=== PATIENT | female | born 1950 | race Caucasian/White ===

== ENCOUNTER → 2021-07-06 00:42 | Outpatient (CLI) | payer MEDICARE, BC, SELFPAY ==
[2021-07-06 18:09] LABS: SARS-CoV-2 RNA PCR Negative
== END ==
PROVIDERS: PCP Internal Medicine; Visit Provider Internal Medicine
DX: Z20.822 Contact with and (suspected) exposure to COVID-19 (principal)
CPT/HCPCS: C9803; U0003; U0005

== ENCOUNTER 2021-12-19 09:38 | Outpatient (CLI) | payer MEDICARE, BC, SELFPAY ==
--- NOTE | ~2021-12-19 | US_ITS ---
EXAMINATION: US venous doppler LE RT EXAM DATE: 12/19/2021 10:08 INDICATION: Swelling of right lower leg. TECHNIQUE: Multiple grayscale, color flow and Doppler images of the right lower extremity deep venous system were obtained and reviewed. There is no prior study for comparison. FINDINGS: The right common femoral, femoral and profunda veins demonstrate normal color flow, respira tory variation, augmentation and compressibility. Compressibility, color flow confirmed within the r ight popliteal, posterior tibial, peroneal, and greater saphenous veins. IMPRESSION: 1. No right lower extremity deep venous thrombosis. Reviewed, dictated and finalized at location B. X RAY NURSE
== END 2021-12-19 09:39 | disposition home or self-care (01) ==
PROVIDERS: PCP Internal Medicine; Visit Provider Physician Assistant Surgical
DX: R22.41 Localized swelling, mass and lump, right lower limb (principal)
CPT/HCPCS: 93971

== ENCOUNTER 2022-11-03 09:15 | Outpatient (CLI) | payer MEDICARE, BC, SELFPAY ==
--- NOTE | 2022-11-03 | ECG_ITS ---
Measurements Intervals [place] Rate: 69 P: 51 MI: 163 QRS: 54 QRSD: 143 T: 13 QT: 423 QTc: 456 Interpretive Statements SINUS RHYTHM RIGHT BUNDLE BRANCH BLOCK ABNORMAL ECG NO PREVIOUS ECG AVAILABLE FOR COMPARISON Electronically Signed On 11-03-2022 10:13:49 COP BREAKER by Danny Moore D.O.
[2022-11-03 10:09] LABS: Anion Gap 7 mmol/L (8-16); Blood Urea Nitrogen 12 mg/dL (7-17); Carbon Dioxide 29 mmol/L (22-30); Chloride 106 mmol/L (98-107); Estimated Glomerular Filt Rate > 60; Glucose 96 mg/dL (65-110); Potassium 4.1 mmol/L (3.4-5.0); Sodium 142 mmol/L (137-145)
== END 2022-11-03 09:16 | disposition home or self-care (01) ==
LOC: ANHIMG 09:24 → ANHLAB 09:32
PROVIDERS: PCP Internal Medicine; Visit Provider Orthopaedic Surgery
DX: Z01.818 Encounter for other preprocedural examination (principal); I45.10 Unspecified right bundle-branch block
CPT/HCPCS: 36415; 80048; 93005

== ENCOUNTER 2023-04-03 08:34 | Outpatient (CLI) | payer MEDICARE, BC, SELFPAY ==
--- NOTE | 2023-04-03 08:49 | ECHO_ITS ---
Patient Info Name: Atiya Larose Age: 72 years : 1950 Gender: Female Ht: 65 in Wt: 195 lbs BSA: 2.05 m2 HR: 65 bpm BP: 129 / 83 mmHg Technical Quality: Good Exam Date: 04/03/2023 9:00 AM Exam Location: [facility] Patient Status: Outpatient Admit Date: 04/03/2023 Staff Ordering Physician: Melquiades Mckeon MD Periodicals Clerk: Albertina Caldwell RDCS Attending Provider: Melquiades Mckeon MD Referring Physician: Mike VALIENTE; Exam Type: CA echo doppler color flow Study Info Indications I10 - Essential (primary) hypertension Complete two-dimensional, color flow and Doppler transthoracic echocardiogram is performed. Summary 1. Complete two-dimensional, color flow and Doppler transthoracic echocardiogram is performed. 2. Left ventricular chamber dimension is normal. 3. Ventricular septum is sigmoid shaped. No LVOT obstruction. 4. Left ventricular systolic function is normal, estimated at 60-65%. 5. There is mild concentric increased left ventricular wall thickness. 6. The left ventricular diastolic function is grade II diastolic dysfunction. 7. E/e' 14 is mildly elevated. 8. Global longitudinal strain is normal at -18.4%. 9. Left atrial chamber dimension is moderately enlarged. 10. There is trace mitral valve regurgitation. 11. No pulmonary hypertension, estimated pulmonary arterial systolic pressure is 20 mmHg. Left Ventricle Ventricular septum is sigmoid shaped. No LVOT obstruction. Global longitudinal strain is normal at -18.4%. E/e' 14 is mildly elevated. Left ventricular chamber dimension is normal. Left ventricular systolic function is normal, estimated at 60-65%. There is mild concentric increased left ventricular wall thickness. The left ventricular diastolic function is grade II diastolic dysfunction. Right Ventricle Right ventricular chamber dimension is normal. Right ventricular systolic function is normal. Left Atria Left atrial chamber dimension is moderately enlarged. Right Atria Right atrial chamber dimension is normal. Aortic Valve The aortic valve is trileaflet. There is no aortic valve stenosis. There is no aortic valve regurgitation. Pulmonic Valve There is no pulmonic regurgitation. Mitral Valve There is no mitral valve stenosis. There is trace mitral valve regurgitation. Tricuspid Valve There is no tricuspid valve regurgitation. No pulmonary hypertension, estimated pulmonary arterial systolic pressure is 20 mmHg. Pericardium/Pleural There is no pericardial effusion. Inferior Vena Cava Normal inferior vena cava with >50% collapse upon inspiration consistent with normal right atrial pressure, 5 mmHg. Aorta The aortic root size at the sinus of Valsalva is normal. Left Ventricular Outflow Tract Name Value Normal LVOT 2D LVOT Diameter 2.0 cm LVOT Doppler LVOT Peak Gradient 6 mmHg LVOT Mean Gradient 3 mmHg LVOT VTI 29 cm LVOT VTI/AV VTI Ratio 0.9 LVOT Stroke Volume 89 ml LVOT CO 5.4 l/min LVOT CI 2.6 l/min/m2 Pulmonic Valve ---------
== END 2023-04-03 08:35 | disposition home or self-care (01) ==
LOC: ANHCARD 08:35
PROVIDERS: PCP Internal Medicine; Visit Provider Internal Medicine
DX: I45.10 Unspecified right bundle-branch block (principal); I10 Essential (primary) hypertension
CPT/HCPCS: 93306

== ENCOUNTER 2023-04-29 08:05 | Outpatient (CLI) | payer MEDICARE, BC, SELFPAY ==
--- NOTE | 2023-04-29 08:35 | ECG_ITS ---
Measurements Intervals [place] Rate: 61 P: 38 SC: 172 QRS: 22 QRSD: 146 T: 0 QT: 450 QTc: 455 Interpretive Statements SINUS RHYTHM RIGHT BUNDLE BRANCH BLOCK BASELINE ARTIFACT- I, II, III ABNORMAL ECG COMPARED TO ECG 11/03/2022 09:56:00 NO SIGNIFICANT CHANGES Electronically Signed On 04-29-2023 8:54:40 CDT by Danny Moore D.O.
[2023-04-29 08:37] LABS: Anion Gap 2 mmol/L (8-16); Blood Urea Nitrogen 19 mg/dL (7-17); Calcium 9.3 mg/dL (8.4-10.2); Carbon Dioxide 29 mmol/L (22-30); Chloride 106 mmol/L (98-107); Estimated Glomerular Filt Rate > 60; Glucose 96 mg/dL (65-110); Sodium 137 mmol/L (137-145)
== END 2023-04-29 08:06 | disposition home or self-care (01) ==
LOC: ANHLAB 08:08
PROVIDERS: PCP Internal Medicine; Visit Provider Orthopaedic Surgery
DX: Z01.818 Encounter for other preprocedural examination (principal); I45.10 Unspecified right bundle-branch block
CPT/HCPCS: 36415; 80048; 93005

== ENCOUNTER 2023-04-29 08:54 | Outpatient (CLI) | payer MEDICARE, BC, SELFPAY ==
--- NOTE | ~2023-04-29 | DEXA_ITS ---
Bone Density Report Name: AMY AMIN Age: 72 Sex: Female Ethnicity: White Date of : 1950 Indication: postmenopausal; screening for osteoporosis; Referring Provider: ELISA AGOSTO Study: Bone densitometry was performed. Exam Date: April 29, 2023 Accession number: [id number] Bone Density: Region BMD T-score Z-score Classification AP Spine(L1-L4) 0.943 -0.9 1.3 Normal Femoral Neck (Left) 0.650 -1.8 0.1 Osteopenia Total Hip (Left) 0.947 0.0 1.6 Normal Femoral Neck (Right) 0.766 -0.7 1.2 Normal Total Hip (Right) 0.885 -0.5 1.1 Normal Total Hip Mean 0.916 -0.3 1.4 Normal World Health Organization criteria for BMD impression classify patients as: Normal (T-score at or above -1.0), Osteopenia (T-score between -1.0 and -2.5), or Osteoporosis (T-score at or below -2.5). 10-year Fracture Risk(1): Major Osteoporotic Fracture 10% Hip Fracture 1.8% Reported Risk Factors: [place] (), Neck BMD=0.650, BMI=32.6 (1) FRAX(R) Version 3.08. Fracture probability calculated for an untreated patient. Fracture probability may be lower if the patient has received treatment. Previous Exams: Region Exam Age BMD T-score BMD Change BMD Change Date g/cm2 vs Baseline vs Previous AP Spine (L1-L4) 04/29/2023 72 0.943 -0.9 -0.012 (-1.2%) -0.012 (-1.2%) 05/25/2017 66 0.955 -0.8 Total Hip(Left) 04/29/2023 72 0.947 0.0 -0.034 (-3.5%) -0.034 (-3.5%) 05/25/2017 66 0.982 0.3 Total Hip(Right) 04/29/2023 72 0.885 -0.5 -0.043 (-4.7%) -0.043 (-4.7%) 05/25/2017 66 0.928 -0.1 *Denotes significance at 95% confidence level, LSC for AP Spine = 0.022 g/cm2, LSC for Total Hip = 0.027 g/cm2 Clinical Information Provided by Patient: Has used the following medications: Vitamin D Patient maximum height was 65 Menopause Age: 58 Does not regularly consume dairy products Onset of menses at age 12 Number of children 2 Impression: The patient has low bone mass, based on the Left Femoral Neck T-score. The patient has an estimated ten-year risk of hip fracture of 1.8% and an estimated ten-year risk of major fracture of 10%, based on the WHO FRAX algorithm. The BMD for the Total Hip(Left) decreased, changing by -3.5% since the last DXA exam. The BMD for the Total Hip(Right) decreased, changing by -4.7% since the last DXA exam. Discussion: BONE DENSITY IS LOW AT ONE OR MORE SKELETAL SITES. This patient's lowest T-score is low at
== END 2023-04-29 08:55 | disposition home or self-care (01) ==
LOC: ANHIMG 08:55
PROVIDERS: PCP Internal Medicine; Visit Provider Internal Medicine
DX: Z78.0 Asymptomatic menopausal state (principal); M85.852 Other specified disorders of bone density and structure, left thigh
CPT/HCPCS: 36415; 77080; 80048; 93005

== ENCOUNTER 2023-12-17 14:05 | Outpatient (CLI) | payer MEDICARE, BC, SELFPAY ==
--- NOTE | ~2023-12-17 | XR_ITS ---
Clinical Indication: Cough, shortness of breath PA and lateral views of the chest: Comparison: 10/21/2013 Findings: The lungs are clear, without evidence of focal consolidation or pleural effusion. Cardiome diastinal silhouette is within normal limits. Bones and soft tissues are unremarkable. Impression: Normal chest. Reviewed, dictated and finalized at location . C TYPOGRAPHER Impression: Normal chest.
[2023-12-17 14:51] LABS: Basophils Absolute Auto 0.1 K/mm3 (0.0-0.1); Basophils Percent Auto 0.8 % (0.2-1.2); Eosinophils Absolute Auto 0.2 K/mm3 (0-0.3); Eosinophils Percent Auto 2.7 % (0-4.4); Hematocrit 38.9 % (37.0-47.0); Hemoglobin 12.7 g/dL (12.0-15.0); Immature Granulocyte Absolute 0.02 K/mm3 (0.00-0.031); Immature Granulocyte Percent A 0.3 % (0-0.5); Lymphocytes Absolute Auto 1.94 K/mm3 (0.9-3.2); Mean Corpuscular HGB Conc 32.6 g/dl (32-36); Mean Corpuscular Hemoglobin 27.6 pg (26-34); Mean Corpuscular Volume 84.6 fl (80-100); Mean Platelet Volume 9.8 fl (7.4-10.4); Monocytes Absolute Auto 0.4 K/mm3 (0.1-0.6); Monocytes Percent Auto 6.9 % (2.6-8.5); Neutrophils Absolute Auto 3.6 K/mm3 (1.3-6.7); Neutrophils Percent Auto 58.3 % (45.5-73.1); Platelet Count Result 269 k/mm3 (150-375); Red Cell Distribution Width 13.7 % (11.5-14.5); White Blood Count 6.3 K/mm3 (4.5-10.0)
== END 2023-12-17 14:06 | disposition home or self-care (01) ==
LOC: ANHLAB 14:08
PROVIDERS: PCP Internal Medicine; Visit Provider Internal Medicine
DX: R05.9 Cough, unspecified (principal); U09.9 Post COVID-19 condition, unspecified
CPT/HCPCS: 36415; 71046; 85025

== ENCOUNTER 2024-03-23 12:39 | Outpatient (CLI) | payer MEDICARE, BC, SELFPAY ==
--- NOTE | ~2024-03-23 | CT_ITS ---
EXAMINATION: CT abdomen pelvis wo/w con DATE: 03/23/2024 13:22 INDICATION: Hematuria, unspecified. TECHNIQUE: Computed tomography (CT) of the abdomen and pelvis was performed without and with intraven ous contrast using a total of 130 mL Omnipaque-350 intravenous contrast with a double-bolus technique for simultaneous opacification of the renal parenchyma and renal collecting system. Automated exposu re control and iterative reconstruction technique were employed. The dose-length product was 2012.01 mGy-cm. COMPARISON: None FINDINGS: The visualized portions of the lung bases demonstrate mild atelectasis. There is mild scarring in par aspinal right lower lobe. No pleural effusion. The heart size is normal. No pericardial effusion. The re are cysts in the liver measuring up to 7 mm. The gallbladder, pancreas, and adrenal glands are nor mal. Calcifications in the spleen are consistent with old granulomatous disease. There is no urolithi asis. Right kidney is normal. There is a 10 mm mass of fat in left kidney, consistent with an angiomy olipoma. The adrenal glands are normal. The endometrial complex is thickened to 11 mm. There are no d ilated loops of bowel. The appendix is normal. Aortic atherosclerosis is noted. There are no patholog ically enlarged lymph nodes. There is no free intraperitoneal fluid. There is severe thoracic and lum bar spondylosis. IMPRESSION: 1. Thickened endometrial complex. The differential diagnosis includes endometrial hyperplasia, polyp, and carcinoma. Biopsy is recommended. 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 Reviewed, dictated and finalized at location A. IMPRESSION: 1. Thickened endometrial complex. The differential diagnosis includes endometri al hyperplasia, polyp, and carcinoma. Biopsy is recommended. 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
[2024-03-23 13:01] LABS: Estimated Glomerular Filt Rate > 60
== END 2024-03-23 12:40 ==
LOC: MICIMG 12:40
PROVIDERS: PCP Internal Medicine; Visit Provider Internal Medicine
DX: R31.9 Hematuria, unspecified (principal); D17.71 Benign lipomatous neoplasm of kidney; R93.89 Abnormal findings on diagnostic imaging of other specified body structures
CPT/HCPCS: 74178; Q9967

== ENCOUNTER 2024-04-29 00:07 | Day surgery (SDC) | payer MEDICARE, BC, SELFPAY ==
[2024-04-26 11:55] VITALS: BMI 32.1
--- NOTE | 2024-04-26 12:01 | PC.NURSE ---
Report to the Outpatient Waiting Room, entrance under the green pavilion located off [facility], at time _0630_ on date _[id number]_. Planned Procedure Time: _0830_. Time changes happen often and if your time is changed the preop area will call you the afternoon before. - You and your visitor will be asked to self-screen and do not enter if you have any COVID symptoms. - A mask is optional within the hospital at this time. Patients may have clear liquids (water, carbonated beverages, clear teas, apple juice) until 3 hours prior to surgery with a maximum of 20 ounces. - No food from midnight until time of surgery Take the following medications with a SIP of water the morning of surgery: ____Levothyroxine and inhaler DO NOT STOP ANY OF YOUR OTHER PRESCRIPTION MEDICATIONS PRIOR TO SURGERY ?EXCEPT THE FOLLOWING Medications to discontinue per physician Vitamins and fish oil Date to take last dose___Stop today. Please no make-up, nail togolese, hairspray, perfume, deodorant, or body powder the day of surgery. No jewelry (including any body piercings) or valuables the day of surgery, leave them at home. Please take a shower or bath the night before, or the morning of, surgery with an antibacterial soap. Wear comfortable, loose fitting clothing. - Jewelry must be removed prior to entering the operating room. Rings and piercings that are not removed may be cut off. - The hospital will not accept responsibility for valuables. - Please leave all valuables, including medications, at home the day of surgery. If you are going home after surgery, a licensed ice cream truck driver must drive you home. - NO public transportation without another adult if you receive anesthesia. - We recommend that an adult stay with you for 24 hours following discharge. - We also recommend that you do not drive, make important decision, drink alcoholic beverages, or take any drugs that were not prescribed by your health care provider for at least 24 hours after your discharge time. Follow any additional instructions given to you from your surgeon. If you or anyone in your household have experienced Covid symptoms in the past week, please notify your surgeon or the nurse liaison at the phone number below for possible testing. Telephone instructions given to __Kathy___and asked if any additional questions and then verbalized understanding. Patient advised to call surgeon office or pre surgery nurse liaison [phone] if any additional questions.
--- NOTE | 2024-04-26 12:47 | PM.IMHP ---
H&P: HPI History of Present Illness Date/Time: 04/26/24 12:47 Chief Complaint: Postmenopausal bleeding Narrative: 73-year-old female who was postmenopausal status post 2 vaginal deliveries many years ago admitted for hysteroscopy/dilatation curettage. She has seen some blood in her urine so a urologist but a negative workup. Unfortunately CT showed thickened endometrium. This was the 1st time she has blood. She has never taken hormone. Risks and benefits reviewed including but not exclusive of , aspiration pneumonia bleeding, transfusion, perforation injury to bowel, bladder, ureters, or other internal organs with need for open laparotomy. She received the ACOG handouts entitled hysteroscopy as well as dilatation curettage. She had all questions answered. She asked to proceed PMF Past Medical History Medical History Benign essential hypertension BMI 32.0-32.9,adult BMI 33.0-33.9,adult Breast cancer screening Bronchitis Colon cancer screening DJD (degenerative joint disease) of knee Encounter for Medicare annual wellness exam Encounter for routine adult health examination without abnormal findings Environmental allergies Family history of other cardiovascular diseases Follow up GERD (gastroesophageal reflux disease) Grade II diastolic dysfunction Hives Hyperlipidemia Hypothyroidism (acquired) Measles screening On assisted drug therapy Osteopenia Personal history of COVID-19 Prediabetes RBBB (right bundle branch block) Screening for osteoporosis URI (upper respiratory infection) Urticaria Surgical History Surgical History History of arthroscopy of left knee Dr Torres 10/2022 & 05/2023 History of bunionectomy History of tonsillectomy and adenoidectomy Hx of breast reduction, elective Hx of tubal ligation Family History Family History Sibling Hypertension Father Cerebrovascular accident Acute myocardial infarction Other Family history of malignant neoplasm of breast Family history of malignant neoplasm of male breast Social History Social History Smoking status: Never smoker Alcohol intake: current Drinks per week: 1 Alcohol use details: socially Substance use type: does not use Do You Feel Safe in your Home?: Yes Lack of Transportation: No Lack of Food: Never True Current Housing: I Have Housing Concerned About Future Housing: No Difficulty Paying Gas/Electric Bills: No Difficulty Paying for Meds: No Currently Unemployed: No Education: High School Diploma/GED Difficulty w/ Childcare or Family Care: No Living arrangements: with family Occupation/Education: retired Gender identity (if verbalized by the patient): Female Spiritual care concerns: No Meds Home Medications and Allergies Home Medications Medication Instructions Recorded Confirmed Type omega-3 fatty acids 1,000 mg 1,000 mg PO BID 03/22/20 04/26/24 History capsule (Fish Oil Concentrate) cetirizine 10 mg capsule (Zyrtec) 10 mg PO DAILY PRN Allergy Symptoms 09/07/23 04/26/24 History alendronate 70 mg tablet See Rx Instructions .Route 10/20/23 04/26/24 Rx .COMPLEX #12 tabs vit 1 tablet PO DAILY 11/11/23 04/26/24 History B-tuzejvm-appkdahje-rutin-yhzo043 500 mg-50 mg-25 mg-40 mg tablet (Bioflex) albuterol sulfate 90 mcg/actuation 2 inh inhalation Q4-6H PRN 12/29/23 04/26/24 Rx aerosol inhaler shortness of breath or wheezing #8.5 grams levothyroxine 88 mcg tablet See Rx Instructions .Route 02/09/24 04/26/24 Rx .COMPLEX #90 tabs rosuvastatin 10 mg tablet See Rx Instructions .Route 03/09/24 04/26/24 Rx .COMPLEX #90 tabs candesartan 16 See Rx Instructions .Route 04/10/24 04/26/24 Rx mg-hydrochlorothiazide 12.5 mg .COMPLEX #90 tabs
--- NOTE | 2024-04-28 15:03 | WPDANESEPPF ---
Anes - Initial Pre Proc Eval Procedure: Operation Date: 04/29/24 08:30 Proposed Procedures p Hysteroscopy, Dilation and Curettage - Alvino Hernandez MD Date/Time: 04/28/24 15:03 Surgeon: Alvino Hernandez MD Pre Op Diagnosis: post menopausal bleeding Patient Data Age: 73 Gender: F Height: 1.65 m Weight: 87.7 kg Allergies Allergy/AdvReac Type Severity Reaction Status Date / Time No Known Allergies Allergy Verified 04/26/24 11:51 Home Medications Medication Instructions Recorded Confirmed Type omega-3 fatty acids 1,000 mg 1,000 mg PO BID 03/22/20 04/26/24 History capsule (Fish Oil Concentrate) cetirizine 10 mg capsule (Zyrtec) 10 mg PO DAILY PRN Allergy Symptoms 09/07/23 04/26/24 History alendronate 70 mg tablet See Rx Instructions .Route 10/20/23 04/26/24 Rx .COMPLEX #12 tabs vit 1 tablet PO DAILY 11/11/23 04/26/24 History M-kdtskpk-luozaudji-rutin-[id number] 500 mg-50 mg-25 mg-40 mg tablet (Bioflex) albuterol sulfate 90 mcg/actuation 2 inh inhalation Q4-6H PRN 12/29/23 04/26/24 Rx aerosol inhaler shortness of breath or wheezing #8.5 grams levothyroxine 88 mcg tablet See Rx Instructions .Route 02/09/24 04/26/24 Rx .COMPLEX #90 tabs rosuvastatin 10 mg tablet See Rx Instructions .Route 03/09/24 04/26/24 Rx .COMPLEX #90 tabs candesartan 16 See Rx Instructions .Route 04/10/24 04/26/24 Rx mg-hydrochlorothiazide 12.5 mg .COMPLEX #90 tabs tablet fluticasone furoate 100 1 ea inhalation DAILY 04/26/24 04/26/24 History mcg-vilanterol 25 mcg/dose inhalation powder hydrocodone 5 mg-acetaminophen 325 1 tablet PO Q4H PRN pain #14 tabs 04/29/24 Rx mg tablet Patient hx anesthesia problems: none Family hx anesthesia problems: none Results Review: All pre-operative results and documents have been reviewed as part of the pre-operative evaluation. [facility] Past Medical History Medical History Benign essential hypertension BMI 32.0-32.9,adult BMI 33.0-33.9,adult Breast cancer screening Bronchitis Colon cancer screening DJD (degenerative joint disease) of knee Encounter for Medicare annual wellness exam Encounter for routine adult health examination without abnormal findings Environmental allergies Family history of other cardiovascular diseases Follow up GERD (gastroesophageal reflux disease) Grade II diastolic dysfunction Hives Hyperlipidemia Hypothyroidism (acquired) Measles screening On care home drug therapy Osteopenia Personal history of COVID-19 Prediabetes RBBB (right bundle branch block) Screening for osteoporosis URI (upper respiratory infection) Urticaria Surgical History Surgical History History of arthroscopy of left knee Dr Torres 10/2022 & 05/2023 History of bunionectomy History of tonsillectomy and adenoidectomy Hx of breast reduction, elective Hx of tubal ligation Family History Family History Sibling Hypertension Father Cerebrovascular accident Acute myocardial infarction Other Family history of malignant neoplasm of breast Family history of malignant neoplasm of male breast Social History Social History Smoking status: Never smoker Alcohol intake: current Drinks per week: 1 Alcohol use details: socially Substance use type: does not use Do You Feel Safe in your Home?: Yes Lack of Transportation: No Lack of Food: Never True Current Housing: I Have Housing Concerned About Future Housing: No Difficulty Paying Gas/Electric Bills: No Difficulty Paying for Meds: No Currently Unemployed: No Education: High School Diploma/GED Difficulty w/ Childcare or Family Care: No Living arrangements: with family Occupation/Education: retired Gender identity (if verbaliz
--- NOTE | 2024-04-29 06:11 | WPDHPUPDATE1 ---
History and Physical Update Update Date/Time: 04/29/24 06:11 History and Physical has been reviewed, including an updated exam of the patient. There are NO changes in the patient's condition. Risks, benefits, and alternatives have been discussed and questions answered. Patient agrees to proceed with procedure.
[2024-04-29 07:11] VITALS: BP 137/59; PULSE 66; TEMP 36.7; O2SAT 95
[2024-04-29] MEDS: ACETAMINOPHEN 500 MG TABLET 1000 MG PO (07:16)
[2024-04-29] MEDS: LACTATED RINGERS 1,000 ML 30 ML IV CONT (07:16)
[2024-04-29] MEDS: LIDOCAINE HCL 1% LOCAL INJ 10 ML VIAL INFILTRATE (08:28)
--- NOTE | 2024-04-29 08:47 | W.PM.PROC2 ---
Procedure Note - Detailed Date of Procedure 04/29/24 Pre-op Diagnosis post menopausal bleeding Post-op Diagnosis Other (Postmenopausal bleeding with benign-appearing endometrial polyp) Procedure Performed hysteroscopy/ dilatation/ polypectomy Surgeon Alvino Hernandez MD Anesthesia MAC and Local Indications 73-year-old the postmenopausal bleeding Findings benign appearing endometrial polyp. Otherwise atrophic appearing endometrium Description of Procedure the patient was prepped draped sterile fashion placed in dorsal lithotomy position. Under excellent IV sedation weighted speculum placed in posterior fornix. Anterior lip of the cervix grasped with single-tooth tenaculum. Uterus sounded to 8cm after placing 2.5cc 1% xylocaine anesthesia 8, 10, 2, 4:00 a.m. of the cervix serial dilatation undertaken and 5mm visualizing hysteroscope inserted. A moderate-sized polyp was seen but a very appearance using the reticulating instrument this was its entirety. Uterus was then scraped over entire 360 ? until a good grating sound was the instruments withdrawn the patient was awakened. Went to recovery in satisfactory condition blood loss was estimated at5cc and all sponge, needle instrument counts were correct Estimated Blood Loss 5 Drains No Packing No Pathology Yes Complications No immediate complications Condition Stable Disposition PACU
[2024-04-29 08:49] VITALS: BP 119/50; PULSE 62; RESP 14; O2SAT 96
[2024-04-29 09:15] VITALS: BP 126/62; PULSE 65; RESP 20
[2024-04-29 09:40] VITALS: BP 139/61; PULSE 54; RESP 20
== END 2024-04-29 09:46 | disposition home or self-care (01) ==
PROVIDERS: PCP Internal Medicine; Visit Provider Obstetrics & Gynecology
PROC: 0U5B8ZZ Destruction of Endometrium, Via Natural or Artificial Opening Endoscopic (ICD-10-PCS; CPT 58563; principal; 2024-04-29 08:30)
DX: N84.0 Polyp of corpus uteri (principal); I10 Essential (primary) hypertension; K21.9 Gastro-esophageal reflux disease without esophagitis; E78.5 Hyperlipidemia, unspecified; E03.9 Hypothyroidism, unspecified; R73.03 Prediabetes; E66.9 Obesity, unspecified; Z68.32 Body mass index [BMI] 32.0-32.9, adult; Z79.83 Long term (current) use of bisphosphonates; Z79.51 Long term (current) use of inhaled steroids; Z79.891 Long term (current) use of opiate analgesic; Z98.890 Other specified postprocedural states; Z98.51 Tubal ligation status; Z86.79 Personal history of other diseases of the circulatory system; Z80.3 Family history of malignant neoplasm of breast; Z82.49 Family history of ischemic heart disease and other diseases of the circulatory system
CPT/HCPCS: 58558; 88305; A9270; J2405; J2704; J3010; J7120

== ENCOUNTER 2024-05-14 08:45 | Outpatient (CLI) | payer MEDICARE, BC, SELFPAY ==
--- NOTE | ~2024-05-14 | DEXA_ITS ---
Bone Density Report Name: AMY AMIN Age: 73 Sex: Female Ethnicity: White Date of : 1950 Indication: postmenopausal; screening for osteoporosis; Referring Provider: ELISA AGOSTO Study: Bone densitometry was performed. Exam Date: May 14, 2024 Accession number: [id number] Bone Density: Region BMD T-score Z-score Classification AP Spine(L1-L4) 0.984 -0.6 1.7 Normal Femoral Neck (Left) 0.696 -1.4 0.6 Osteopenia Total Hip (Left) 1.018 0.6 2.3 Normal Femoral Neck (Right) 0.766 -0.7 1.2 Normal Total Hip (Right) 0.964 0.2 1.8 Normal Total Hip Mean 0.991 0.4 2.1 Normal World Health Organization criteria for BMD impression classify patients as: Normal (T-score at or above -1.0), Osteopenia (T-score between -1.0 and -2.5), or Osteoporosis (T-score at or below -2.5). 10-year Fracture Risk(1): Major Osteoporotic Fracture 9.7% Hip Fracture 1.4% Reported Risk Factors: [place] (), Neck BMD=0.696, BMI=32.6 (1) FRAX(R) Version 3.08. Fracture probability calculated for an untreated patient. Fracture probability may be lower if the patient has received treatment. Previous Exams: Region Exam Age BMD T-score BMD Change BMD Change Date g/cm2 vs Baseline vs Previous AP Spine (L1-L4) 05/14/2024 73 0.984 -0.6 0.029 (3.0%)* 0.041 (4.3%)* 04/29/2023 72 0.943 -0.9 -0.012 (-1.2%) -0.012 (-1.2%) 05/25/2017 66 0.955 -0.8 Total Hip(Left) 05/14/2024 73 1.018 0.6 0.036 (3.7%)* 0.071 (7.5%)* 04/29/2023 72 0.947 0.0 -0.034 (-3.5%) -0.034 (-3.5%) 05/25/2017 66 0.982 0.3 Total Hip(Right) 05/14/2024 73 0.964 0.2 0.036 (3.9%)* 0.079 (9.0%)* 04/29/2023 72 0.885 -0.5 -0.043 (-4.7%) -0.043 (-4.7%) 05/25/2017 66 0.928 -0.1 *Denotes significance at 95% confidence level, LSC for AP Spine = 0.022 g/cm2, LSC for Total Hip = 0.027 g/cm2 Clinical Information Provided by Patient: Has used the following medications: Vitamin D Patient maximum height was 65 Menopause Age: 58 Does not regularly consume dairy products Onset of menses at age 12 Number of children 2 Impression: The patient has low bone mass, based on the Left Femoral Neck T-score. The patient has an estimated ten-year risk of hip fracture of 1.4% and an estimated ten-year risk of major fracture of 9.7%, based on the WHO FRAX algorithm. No significant bone loss was observed. Discussion: BONE DENSITY IS LOW AT ONE
== END 2024-05-14 08:46 | disposition home or self-care (01) ==
LOC: ANHIMG 08:45
PROVIDERS: PCP Internal Medicine; Visit Provider Internal Medicine
DX: Z78.0 Asymptomatic menopausal state (principal); M85.80 Other specified disorders of bone density and structure, unspecified site; M85.852 Other specified disorders of bone density and structure, left thigh
CPT/HCPCS: 77080